=== PATIENT | male | born 1965 | race Hispanic/Latino ===

== ENCOUNTER 2025-01-10 07:42 | Outpatient (CLI) | payer OTHER ==
[2025-01-10] MEDS ORDERED: Iopamidol 370 76% 100 ML VIAL ONE (12:51)
== END 2025-01-10 07:43 | disposition home or self-care (01) ==
LOC: CT 07:42
PROVIDERS: ATTEND Surgery
DX: C7A.1 Malignant poorly differentiated neuroendocrine tumors (principal); K76.89 Other specified diseases of liver; C20 Malignant neoplasm of rectum; R19.00 Intra-abdominal and pelvic swelling, mass and lump, unspecified site
CPT/HCPCS: 71260; 72197; 74177; Q9967

== ENCOUNTER 2025-02-01 08:00 | Outpatient (CLI) | payer OTHER | END 2025-02-01 08:01 | disposition home or self-care (01) | LOC: PET 08:00 | PROVIDERS: ATTEND Internal Medicine | DX: C20 Malignant neoplasm of rectum (principal); D75.1 Secondary polycythemia; C77.5 Secondary and unspecified malignant neoplasm of intrapelvic lymph nodes | CPT/HCPCS: 78815; A9552 ==

== ENCOUNTER 2025-03-18 12:58 | Outpatient (CLI) | payer OTHER | END 2025-03-18 12:59 | disposition home or self-care (01) | LOC: RAD 12:58 | PROVIDERS: ATTEND Internal Medicine | DX: C20 Malignant neoplasm of rectum (principal); D75.1 Secondary polycythemia | CPT/HCPCS: 36598; J1642; Q9967 ==